=== PATIENT | female | born 1975 | race Caucasian/White ===

== ENCOUNTER → 2017-01-23 | Day surgery (SDC) | payer OTHER ==
--- NOTE | 2017-01-24 15:38 | PATH ---
Cytology Non-Gynecological Report Patient Name: KIRSTEN JACOBO [facility]. Rec. #: [id number] /Age/Gender: 1975 (Age: 41) / F Account: [id number] Location: RADIOLOGY Taken: 01/23/2017 Received: 01/23/2017 Reported: 01/24/2017 Physicians: Nallely Casiano M.D. Specimen(s) Received RIGHT THYROID FNA Clinical History Right thyroid nodule, 2.45 x 1.0 x 2.04 cm Final Diagnosis THYROID GLAND, RIGHT LOBE, US GUIDED FINE NEEDLE ASPIRATION BIOPSY: SATISFACTORY FOR EVALUATION DUE TO THE PRESENCE OF COLLOID. NO FOLLICULAR EPITHELIAL CELLS PRESENT; COLLOID AND NUMEROUS DEGENERATED MACROPHAGES, MOST SUGGESTIVE OF COLLOID CYST ([place] CATEGORY II), SEE COMMENT. Comment: The smears and the cell block show colloid and numerous degenerated macrophages. No follicular epithelial cells are seen. 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 Imaging correlations and followup are suggested. Electronically Signed Pola Messina M.D. Gross Description Received are four air dried smears, four smears in 95% alcohol, and 20 cc of bloody fluid in formalin. Four diff-quik stained slides, four Pap stained slides and one cell block are made.
== END | disposition home or self-care (01) ==
LOC: JRADIR 08:30
PROVIDERS: ATTEND Internal Medicine Endocrinology, Diabetes & Metabolism
PROC: 0G9H3ZX Drainage of Right Thyroid Gland Lobe, Percutaneous Approach, Diagnostic (ICD-10-PCS; principal; 2017-01-23)
PROC: BG44ZZZ Ultrasonography of Thyroid Gland (ICD-10-PCS; 2017-01-23)
DX: E04.1 Nontoxic single thyroid nodule (principal)
CPT/HCPCS: 76942; 88173; 88305-TC

== ENCOUNTER → 2022-08-14 | Day surgery (SDC) | payer OTHER | END | disposition home or self-care (01) | LOC: JRADIR 10:52 | PROVIDERS: ATTEND Otolaryngology | PROC: 0G9H3ZX Drainage of Right Thyroid Gland Lobe, Percutaneous Approach, Diagnostic (ICD-10-PCS; principal; 2022-08-14) | DX: E04.1 Nontoxic single thyroid nodule (principal) | CPT/HCPCS: 10005; 76942; 88173; 88305-TC ==